=== PATIENT | male | born 1985 | race Asian ===

== ENCOUNTER 2025-02-05 19:08 | Emergency (ER) | payer SELFPAY ==
[~2025-02-05] VITALS: Ht 172.7 cm; Wt 89.5 kg
[2025-02-05 19:32] VITALS: TEMP 36.9; O2SAT 98
[2025-02-05] MEDS: DIPHENHYDRAMINE 50MG/ML VIAL IM ONE (21:35)
[2025-02-05] MEDS: LORAZEPAM 2MG/ML UD SYRINGE IM NR ×2 (22:22→23:44)
[2025-02-06 00:56] VITALS: BP 135/93; PULSE 90; RESP 20; O2SAT 100
[2025-02-06] MEDS: ZOLPIDEM TARTRATE 5MG TABLET PO ONE (00:56)
== END 2025-02-06 01:14 | disposition home or self-care (01) ==
LOC: ER 19:08
DX: F95.9 Tic disorder, unspecified (principal); Z98.890 Other specified postprocedural states
CPT/HCPCS: 96372; 99284; J1200; J2060; Z7610